=== PATIENT | female | born 1955 | race Caucasian/White ===

== ENCOUNTER 2017-01-30 08:45 | Emergency (ER) | payer BC ==
[2017-01-30 08:54] VITALS: BP 148/80; PULSE 71; TEMP 97.5; BMI 34.7
--- NOTE | 2017-01-30 09:32 | PDOC ---
History of Present Illness - General Chief Complaint: Nasal Bleeding Stated Complaint: NOSE BLEED Time Seen by Provider: 01/30/17 09:05 History Source: Patient Exam Limitations: No Limitations - History of Present Illness Initial Comments: 01/30/17 09:30 My chief complaint: Right sided nosebleed severe since last night Of present illness: Patient is a 62-year-old female with a history of hypertension and hypothyroidism and right sided epistasis since the age of 17. Patient reports that last night she had severe bleeding from her right nostril with large clots and again woke up with severe bleeding and large clots coming from her right nostril. Patient ports that on her way here the bleeding stopped from her right nostril. Patient reports that in the past she's had to have nasal packing and cauterization of her right nostril anteriorly. Timing/Duration: intermittent Severity: severe (right nostril ) Associated Symptoms: reports: denies symptoms Past History - Past Medical History Allergies/Adverse Reactions: Allergies Allergy/AdvReac Type Severity Reaction Status Date / Time No Known Allergies Allergy Verified 01/30/17 08:53 Home Medications: Ambulatory Orders Levothyroxine [Synthroid -] 25 mcg PO DAILY 02/27/12 Amlodipine Besylate [Norvasc -] 5 mg PO DAILY 06/25/15 Alprazolam 0.25 mg PO ASDIR 01/30/17 Nebivolol [Bystolic -] 10 mg PO DAILY 01/30/17 Anemia: No Asthma: No Cancer: No Cardiac Disorders: No COPD: No CHF: No GI Disorders: Yes (GERD; BARITS) HTN: Yes Suicide Attempt (Hx): No Thyroid Disease: Yes (HYPO) - Surgical History Cholecystectomy: Yes - Immunization History Immunization Up to Date: Yes - Psycho/Social/Smoking Cessation Hx Anxiety: No Suicidal Ideation: No Smoking Status: Yes Smoking History: Former smoker Have you smoked in the past 12 months: No Number of Cigarettes Smoked Daily: 20 If you are a former smoker, when did you quit?: 11/12/15 Information on smoking cessation initiated: No 'Breaking Loose' booklet given: 11/28/15 Hx Alcohol Use: No Drug/Substance Use Hx: No Substance Use Type: None Review of Systems - Review of Systems Able to Perform ROS?: Yes Constitutional: No: Symptoms Reported HEENTM: Yes: Nose Bleeding (right nostril since night with large clots ) Respiratory: No: Symptoms reported Cardiac (ROS): No: Symptoms Reported ABD/GI: No: Symptoms Reported : No: Symptoms Reported Musculoskeletal: No: Symptoms Reported Integumentary: No: Symptoms Reported *Physical Exam - Vital Signs Last Vital Signs Temp Pulse Resp BP Pulse Ox 97.5 F L 71 18 148/80 99 01/30/17 08:51 01/30/17 08:51 01/30/17 08:51 01/30/17 08:51 01/30/17 08:51 - Physical Exam General Appearance: Yes: Appropriately Dressed HEENT: positive: Other (right nostril oozing blood superior turbinate, no septal hematoma noted). negative: Pharyngeal Erythema, Tonsillar Exudate, Tonsillar Erythema, Nasal Congestion, Rhinorrhea Neck: negative: Lymphadenopathy (R), Lymphadenopathy (L) Respiratory/Chest: positive: Lungs Clear, Normal Breath Sounds. negative: Chest Tender, Respiratory Distress Cardiovascular: positive: Regular Rhythm, Regular Rate, S1, S2 Integumentary: positive: Normal Color Neurologic: positive: Alert, Normal Response Medical Decision Making - Medical Decision Making 01/30/17 09:32 Patient is a 62-year-old female with a history of hypertension and hypothyroidism and right sided epistasis since the age of 17. Patient reports that last night she had severe bleeding from her right nostril with large clots and again woke up with severe bleeding and large clots coming from her right nostril. Patient ports that on her way here the bleeding stopped from her right nostril. Patient reports that in the past she's had to have nasal packing and cauterization of her right nostril anteriorly. right nostril epistaxis PLAN: called Dr. Galloway ENT pt. can go immediately there go immediately to Dr. Galloway's office *DC/Admit/Observation/Transfer Diagnosis at time of Disposition: Severe epistaxis - Discharge Dispostion Disposition: HOME Condition at time of disposition: Stable - Referrals Referrals: Maxim Rider MD [Primary Care Provider] - Maxim Galloway MD [Staff Physician] - - Patient Instructions Additional Instructions: Go immediately to Dr. Galloway's office they are expecting you Patient voiced understanding of discharge instructions and all questions were answered
== END 2017-01-30 09:31 | disposition home or self-care (01) ==
LOC: JERFT 08:45
DX: R04.0 Epistaxis (principal); I10 Essential (primary) hypertension; E03.9 Hypothyroidism, unspecified
CPT/HCPCS: 99281-25

== ENCOUNTER 2017-12-29 07:30 | Day surgery (SDC) | payer BC ==
[2017-12-26 11:17] VITALS: BMI 34.7
[2017-12-29] MEDS ORDERED: ceFAZolin SODIUM 1 GM VIAL IVPB ONE (09:57)
[2017-12-29] MEDS ORDERED: LIDOCAINE 1%/EPI 1:100000 (20 ML MULTI DOSE VIAL) IJ ONE (10:12)
[2017-12-29] MEDS ORDERED: BUPIVACAINE HCL/PF (5 MG/ML) 30 ML VIAL IJ ONE (10:12)
--- NOTE | 2017-12-29 11:23 | OP ---
Operative Note - Note: Operative Date: 12/29/17 Pre-Operative Diagnosis: Right submandibular mass Operation: Right submandibular mass excision Surgeon: Dimitris Villeda Coastal Tug Mate: Elbert Ramirez Anesthesia: General Estimated Blood Loss (mls): 15 Drains & Tubes with Location: Right neck Fluid Volume Replaced (mls): 1,300 Operative Report Dictated: Yes
--- NOTE | 2017-12-29 11:24 | SURG ---
Surgery Teacher Counselor Note Teacher Counselor: Elbert Ramirez PA-C Date of Service: 12/29/17 Diagnosis: Right submandibular mass Procedure: Right submandibular mass excision I was present for the entirety of the operative procedure. For further detail, please refer to operative report.
[2017-12-29] MEDS ORDERED: oxyCODONE HCL 5 MG TABLET PO PRN (11:34)
[2017-12-29] MEDS ORDERED: ONDANSETRON 4 MG/2 ML VIAL IVPUSH PRN (11:34)
[2017-12-29] MEDS ORDERED: LACTATED RINGERS SOLUTION 1,000 ML IV SCH (13:45)
[2017-12-29 15:57] VITALS: BP 135/72; PULSE 62; TEMP 97.6
--- NOTE | 2017-12-29 18:38 | OP ---
DATE OF OPERATION: 12/29/2017 SURGICAL ATTENDING: Gillian Valiente MD PREOPERATIVE DIAGNOSIS: Right submandibular mass. POSTOPERATIVE DIAGNOSIS: Right submandibular mass. ANESTHESIA: General endotracheal. PROCEDURE: Right submandibular gland/mass resection with facial nerve monitoring. DESCRIPTION OF PROCEDURE: The patient was taken into the operating room, placed in a supine position, endotracheally intubated. The eyes were protected. A shoulder roll was placed. Nerve monitor was placed. Local anesthesia was administered, and a 5-cm right upper neck incision was made in a skin crease and carried down through subcutaneous tissues and platysma. Subplatysmal flaps were raised superiorly, and flap hooks were placed for exposure. The digastric muscle was identified and dissected inferiorly. The facial vessels were identified and preserved medially. The cervical branch of the facial nerve was transected. The marginal branch was identified, tested, dissected, and preserved. The lingual nerve was identified, and the submandibular ganglion was transected. The hypoglossal nerve was protected. Submandibular gland and mass were isolated from surrounding structures. The submandibular duct was clamped, tied, and cut. In this way, the right submandibular gland and mass were removed without violating the capsule. This was sent off for permanent evaluation. Hemostasis was achieved with electrocautery and Avitene. The wound was then closed over a Hemovac drain which was sutured to the skin in 2 layers. Sterile dressings were placed. The patient was then awakened, extubated, and taken to Recovery in stable condition. Dr. Valiente, the attending surgeon, was present throughout the entire procedure. GILLIAN VALIENTE M.D. [id number]
--- NOTE | 2018-01-01 14:40 | PATH ---
Surgical Pathology Report Patient Name: EFREN [facility]ENDRICK[facility]. Rec. #: [id number] /Age/Gender: 1955 (Age: 62) / F Account: [id number] Location: [facility] SURGICAL Taken: 12/29/2017 Received: 12/29/2017 Reported: 01/01/2018 Physicians: Diimtris Villeda M.D. 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 ADJACENT SUBMANDIBULAR GLAND TISSUE PRESENT. SURGICAL MARGINS ARE NEGATIVE. Comment: Immunohistochemical stains performed and interpreted at [facility] show CK7 highlights the epithelial component, while p63 highlights myoepithelial cells. Additional immunohistochemical stains performed at [place], [place] ([id number]) and interpreted at [facility] show P40 highlights myoepithelial cells. Proliferative marker, Ki- 67 is low. Histologic findings and immunophenotype supports the diagnosis. Electronically Signed Jody Key M.D. Gross Description Received in formalin labeled "right submandibular gland," is a 4.4 x 3.7 x 2.6 cm unoriented portion of yellow, fatty tissue. Sectioning reveals a 2.6 x 2.5 x 1.9 cm homogeneous li, well-circumscribed solid mass. The remaining parenchyma is yellow-red and lobulated. Death Clearance Coordinator sections are submitted in 8 cassettes as follows: [id number] and sequentially submitted mass; [id number] b2b outside sales representative submandibular gland. /12/29/2017 saudi/12/29/2017
== END 2017-12-29 16:00 | disposition home or self-care (01) ==
LOC: JASU-SURG 07:30
PROVIDERS: ATTEND Surgery
PROC: 0CBG0ZZ Excision of Right Submaxillary Gland, Open Approach (ICD-10-PCS; principal; 2017-12-29 09:00)
DX: D11.7 Benign neoplasm of other major salivary glands (principal)
CPT/HCPCS: 88307-TC; 88341-TC; 88342-TC; 94760

== ENCOUNTER 2018-02-09 22:37 | Emergency (ER) | payer BC ==
[2018-02-09 23:06] VITALS: BMI 34.7
--- NOTE | 2018-02-10 01:14 | PDOC ---
History of Present Illness - History of Present Illness Initial Comments: 02/10/18 01:15 The patient is a 63 year old female, with a significant past medical history of benign salivary tumor, who presents to the emergency department with spontaneous bleeding from incision to right neck s/p removal of a benign tumor a right salivary gland on 12/29/17. She states the salivary gland was removed as well as the tumor. She reports mild pain to the neck when she stretches her neck , but denies pain at rest. She denies taking anticoagulents. The patient denies chest pain, shortness of breath, headache and dizziness. The patient denies fever, chills, nausea, vomit, diarrhea and constipation. The patient denies dysuria, frequency, urgency and hematuria. Allergies: penicillins, latex Past surgical history: benign tumor removal Social history: denies toxic habits surgeon: Dr. Villeda <An Hernandez - Last Filed: 02/10/18 01:14> <Mignon Browne - Last Filed: 02/10/18 01:27> - General Chief Complaint: Wound Stated Complaint: WOUND Time Seen by Provider: 02/10/18 00:59 Past History <An Hernandez - Last Filed: 02/10/18 01:14> - Past Medical History Anemia: No Asthma: No Cancer: No Cardiac Disorders: No CVA: No COPD: No CHF: No DVT: No Dementia: No Diabetes: No GI Disorders: Yes (GERD; ESPINAL'S) Disorders: No HTN: Yes Hypercholesterolemia: Yes Liver Disease: No Seizures: No Thyroid Disease: Yes (HYPO) - Surgical History Cholecystectomy: Yes Neurologic Surgery: (cervical sx) - Immunization History Immunization Up to Date: Yes - Suicide/Smoking/Psychosocial Hx Smoking Status: Yes Smoking History: Former smoker Have you smoked in the past 12 months: No Number of Cigarettes Smoked Daily: 20 If you are a former smoker, when did you quit?: 11/12/15 Information on smoking cessation initiated: No 'Breaking Loose' booklet given: 11/28/15 Hx Alcohol Use: No Drug/Substance Use Hx: No Substance Use Type: Alcohol <Mignon Browne - Last Filed: 02/10/18 01:27> - Past Medical History Allergies/Adverse Reactions: Allergies Allergy/AdvReac Type Severity Reaction Status Date / Time latex Allergy Itching Verified 12/29/17 09:09 Penicillins Allergy "itchy" Verified 12/29/17 07:48 Home Medications: Ambulatory Orders Nebivolol [Bystolic -] 10 mg PO DAILY 01/30/17 Alprazolam [Xanax] 1 mg PO PRN PRN 12/26/17 Levothyroxine [Synthroid -] 50 mcg PO UTDICT 12/26/17 Levothyroxine [Synthroid -] 375 mcg PO UTDICT 12/26/17 Oxycodone HCl/Acetaminophen [Percocet 5-325 mg Tablet] 1 tab PO Q4H #15 tablet MDD 6 12/29/17 Review of Systems - Review of Systems Able to Perform ROS?: Yes Comments:: 02/10/18 01:14 CONSTITUTIONAL: Absent: fever, no chills, no fatigue EYES: Absent: visual changes ENT: Absent: ear pain, no sore throat CARDIOVASCULAR: Absent: chest pain, no palpitations RESPIRATORY: Absent: cough, no SOB GI: Absent: abdominal pain, no nausea, no vomiting, no constipation, no diarrhea GENITOURINARY: Absent: dysuria, no frequency, no hematuria MUSCULOSKELETAL: Absent: back pain, no arthralgia, no myalgia SKIN: (+) right neck wound bleeding. Absent: rash NEURO: Absent: headache <An Hernandez - Last Filed: 02/10/18 01:14> *Physical Exam - Vital Signs Last Vital Signs Temp Pulse Resp BP Pulse Ox 97.7 F 58 L 20 135/75 95 02/09/18 22:57 02/09/18 22:57 02/09/18 22:57 02/09/18 22:57 02/09/18 22:57 - Physical Exam Comments: 02/10/18 01:15 GENERAL: Well-appearing, well-nourished. No apparent distress. HEENT: Normocephalic, atraumatic. PERRL, EOM intact. CARDIOVASCULAR: Normal S1, S2. Regular rate and rhythm. PULMONARY: Clear to auscultation bilaterally. ABDOMEN: Soft, non-distended, non-tender. EXTREMITIES: Normal ROM in all four extremities. No gross deformities. SKIN: (+) recent 4cm incision to right neck with clotted blood on arrival. No purulence or erythema. 3mm area of dehiscence. Warm, dry. No rash NEUROLOGICAL: No focal neurological deficits. <An Hernandez - Last Filed: 02/10/18 01:14> - Vital Signs Last Vital Signs Temp Pulse Resp BP Pulse Ox 97.7 F 58 L 20 135/75 95 02/09/18 22:57 02/09/18 22:57 02/09/18 22:57 02/09/18 22:57 02/09/18 22:57 <Mignon Browne - Last Filed: 02/10/18 01:27> Medical Decision Making - Medical Decision Making 02/10/18 01:17 63, room who had submandibular tumor removed vision 18, had some venous bleeding that stopped spontaneously. Upon arrival to the ER. There are there is no active bleeding, there is just a small clot on the surface. It is a very small wound dehiscence of about 3 mm. Patient is not on any anticoagulation. Impression healing surgical site, bleeding resolved -There is no evidence of purulence, surrounding erythema or significant tenderness to the area Plan the patient is see Dr. Villeda tomorrow <Mignon Browne - Last Filed: 02/10/18 01:27> *DC/Admit/Observation/Transfer - Attestations Scribe Attestion: 02/10/18 01:16 Documentation prepared by An Hernandez, acting as medical physics professor for Mignon Browne MD <An Hernandez - Last Filed: 02/10/18 01:14> <Mignon Browne - Last Filed: 02/10/18 01:27> Diagnosis at time of Disposition: Wound dehiscence - Discharge Dispostion Disposition: HOME Condition at time of disposition: Stable - Referrals Referrals: Maxim Rider MD [Primary Care Provider] - - Patient Instructions Printed Discharge Instructions: DI for Post-Surgical Bleeding Additional Instructions: please follow up with Dr Villeda - Post Discharge Activity
[2018-02-10 02:27] VITALS: BP 128/77; PULSE 78; TEMP 98.2
== END 2018-02-10 01:35 | disposition home or self-care (01) ==
LOC: JER 22:37
DX: T81.30XA Disruption of wound, unspecified, initial encounter (principal); K22.70 Barrett's esophagus without dysplasia; K21.9 Gastro-esophageal reflux disease without esophagitis; E78.00 Pure hypercholesterolemia, unspecified; I10 Essential (primary) hypertension; E03.9 Hypothyroidism, unspecified
CPT/HCPCS: 99282-25

== ENCOUNTER 2022-10-30 06:11 | Day surgery (SDC) | payer BC ==
[2022-10-21 13:16] VITALS: BMI 31.1
[2022-10-30] MEDS ORDERED: LIDOCAINE HCL 2% (20ML MULTI-DOSE VIAL) ONE (07:13)
[2022-10-30] MEDS ORDERED: PROPOFOL 20 ML ONE (07:16)
[2022-10-30] MEDS ORDERED: MIDAZOLAM HCL 2 MG/2 ML SINGLE DOSE VIAL ONE (07:16)
[2022-10-30] MEDS ORDERED: oxyCODONE HCL 5 MG TABLET PO PRN (07:29)
[2022-10-30] MEDS ORDERED: ONDANSETRON 4 MG/2 ML VIAL IVPUSH PRN (07:29)
[2022-10-30] MEDS ORDERED: LACTATED RINGERS SOLUTION 1,000 ML IV SCH (07:30)
[2022-10-30 09:13] VITALS: RESP 20; TEMP 97.1
[2022-10-30 09:16] VITALS: BP 156/76; PULSE 62
== END 2022-10-30 09:20 | disposition home or self-care (01) ==
LOC: FASU 06:11
PROVIDERS: ATTEND Orthopaedic Surgery Hand Surgery
PROC: 01N50ZZ Release Median Nerve, Open Approach (ICD-10-PCS; principal; 2022-10-30 07:59)
DX: G56.01 Carpal tunnel syndrome, right upper limb (principal)

== ENCOUNTER → 2022-12-24 | Day surgery (SDC) | payer BC | END | disposition home or self-care (01) | LOC: JRADIR 09:19 | PROVIDERS: ATTEND Internal Medicine Endocrinology, Diabetes & Metabolism | PROC: 0G9H3ZX Drainage of Right Thyroid Gland Lobe, Percutaneous Approach, Diagnostic (ICD-10-PCS; principal; 2022-12-24) | DX: E04.1 Nontoxic single thyroid nodule (principal) | CPT/HCPCS: 10005; 76942; 88173; 88305-TC ==